=== PATIENT | male | born 1995 | race Caucasian/White ===

== ENCOUNTER 2023-09-18 19:37 | Emergency (ER) | payer SELFPAY ==
[2023-09-18] MEDS: Bacitracin Oint 1 GM U/D Packet TOP ONE (19:57)
[2023-09-18] MEDS: Lidocaine 1% 5 ML VIAL INJECT ONE (19:57)
== END 2023-09-18 20:23 | disposition home or self-care (01) ==
LOC: DL.ED 19:37
DX: S01.81XA Laceration without foreign body of other part of head, initial encounter (principal); W50.0XXA Accidental hit or strike by another person, initial encounter; Y93.67 Activity, basketball
CPT/HCPCS: 12011; 99282; A9270; J3490

== ENCOUNTER 2023-09-25 10:42 | Emergency (ER) | payer SELFPAY | END 2023-09-25 11:22 | disposition home or self-care (01) | LOC: DL.ED 10:42 | DX: Z48.02 Encounter for removal of sutures (principal) | CPT/HCPCS: 99281 ==